=== PATIENT | female | born 1970 | race Caucasian/White ===

== ENCOUNTER 2024-01-19 17:29 | Emergency (ER) | payer OTHER, SELFPAY ==
[2024-01-19 17:37] VITALS: BP 141/66; PULSE 89; RESP 16; TEMP 36.6; O2SAT 97
--- NOTE | 2024-01-19 18:27 | ED_ITS ---
HPI - URI/Sore Throat General Chief Complaint: Ear Stated Complaint: Ear Pain Time Seen by Provider: 01/19/24 18:15 Source: patient and RN notes reviewed Mode of arrival: ambulatory Limitations: no limitations History of Present Illness HPI Narrative: Patient presents today complaining of nasal congestion x3 weeks with bilateral ear pressure x3 days, sinus pressure, headache, cough. Denies shortness of breath. Currently rates her pain 7/10 and has been taking ibuprofen and NyQuil without relief. Related Data Allergies Allergy/AdvReac Type Severity Reaction Status Date / Time No Known Allergies Allergy Unknown Verified 06/22/23 08:28 Review of Systems Review of Systems: CONSTITUTIONAL: Denies body aches, fever, chills, or sweats. EYES: Denies visual changes, redness, or discharge. ENT: Denies rhinorrhea. + nasal congestion, sinus pressure, bilateral ear pressure CARDIOVASCULAR: Denies chest pain, palpitations, or edema. RESPIRATORY: Denies dyspnea.+ cough GASTROINTESTINAL: Denies abdominal pain, nausea, vomiting, or diarrhea. GENITOURINARY: Denies dysuria or hematuria. SKIN: Denies rash, itching, or wounds. MUSCULOSKELETAL: Denies back pain, joint pain, or myalgia. NEUROLOGIC: Denies numbness, tingling, or weakness.+ headache PSYCH: Denies depression or anxiety. [facility] Past Medical History Medical History Anxiety disorder No rx meds Surgical History Surgical History Delivery by section 12/23/2001- primary - placenta previa 09/16/2005-repeat H/O gynecological procedure ECC- 12/27/2007 H/O: hysterectomy hysterectomy/no BSO - DUB History of endometrial ablation History of tubal ligation 09/16/2005 Family History Family History Mother Heart disease Osteoporosis No hx of any fractures Social History Social History Smoking status: Never smoker Alcohol intake: never Substance use: never Substance use type: does not use Do You Feel Safe in your Home?: Yes Lack of Transportation: No Lack of Food: Never True Current Housing: I Have Housing Concerned About Future Housing: No Difficulty Paying Gas/Electric Bills: No Difficulty Paying for Meds: No Currently Unemployed: No Education: Bachelor's Degree Difficulty w/ Childcare or Family Care: No Living arrangements: with family Occupation/Education: occupation Gender identity (if verbalized by the patient): Female Sexual Orientation (if Verbalized by the Patient): Straight or Heterosexual Comments At time of signature, I have reviewed and agree with nursing past medical, surgical, social and family history unless otherwise noted. Please see nursing chart for further information. There is no relevant family history pertinent to the presenting complaint Exam Narrative: GENERAL: Mildly a-appearing, well-nourished, and in no acute distress. HEAD: Normocephalic, atraumatic. EYES: EOMI. No redness or drainage. Conjunctivae normal. ENT: Mucous membranes pink and moist. Nares congested. No rhinorrhea. TMs normal bilaterally. Throat normal. Uvula midline. NECK: Normal AROM. Supple. No lymphadenopathy. CHEST: No respiratory distress. Clear to auscultation. HEART: Regular rate and rhythm. No murmur appreciated. EXTREMITIES: Normal range of motion. No edema. SKIN: Warm, dry, no rash. Capillary refill normal. Normal skin turgor. NEURO: No focal deficits. Alert and oriented x3. Gait steady. PSYCH: Normal affect. No signs of depression or anxiety. Course Course Level of Care: Express Care Visit Vital Signs Vital signs: Vital Signs Temperature 97.8 F 01/19/24 17:37 Pulse Rate 89 01/19/24 17:37 Respiratory Rate 16 01/19/24 17:37 Blood Pressure 141/66 H 01/19/24 17:37 Pulse Oximetry 97 01/19/24 17:37 Temperature 97.8 F 01/19/24 17:37 Pulse Rate 89 01/19/24 17:37 Respiratory Rate 16 01/19/24 17:37 Blood Pressure 141/66 H 01/19/24 17:37 Pulse Oximetry 97 01/19/24 17:37 Reviewed MDM - URI/Sore Throat MDM Narrative Medical decision making narrative: Patient will be treated with amoxicillin and prednisone for sinusitis and bronchitis. Anticipatory guidance given. Differential Diagnosis Differential diagnosis: Likely upper respiratory infection, otitis media, sinusitis and bronchitis Critical Care Time Critical Care Time Critical Care Time: No Discharge Plan Discharge Clinical Impression: Bronchitis Sinusitis Qualifiers: Sinusitis location: unspecified location Chronicity: acute Recurrence: non- recurrent Qualified Code(s): J01.90 - Acute sinusitis, unspecified Patient Disposition: Home, Self-Care Condition: Stable Instructions: Antibiotic Form, Sinusitis (ED), Acute Bronchitis (ED) Additional Instructions: Please take all medications as prescribed. Continue [id number] medication as needed for symptoms. Follow-up with your PCP in 3 days if symptoms are not improving. Your blood pressure was elevated above 120/80 today at Urgent Care. This puts you above the threshold for follow up. Please schedule a followup visit with your personal physician as soon as possible, for further evaluation and treatment. Even blood pressure exceeding 120/80 may indicate pre-hypertension. Prescriptions: New amoxicillin 875 mg tablet 875 mg PO Q12H 7 Days Qty: 14 0RF prednisone 50 mg tablet 50 mg PO DAILY 5 Days Qty: 5 0RF No Action estradiol 0.5 mg tablet 0.25 mg PO DAILY 90 Days Qty: 45 3RF estradiol 1 mg tablet 1 mg PO DAILY 90 Days Qty: 90 3RF Rx Instructions: to take in combination with estradiol 0.5mg 1/2 tab to equal estradiol 1.25 mg daily Follow-up/Referrals: PHYSICIAN,ROD CUP FILLER [Primary Care Provider] - Time of Disposition: 18:26
== END 2024-01-19 18:27 | disposition home or self-care (01) ==
PROVIDERS: Emergency Provider Nurse Practitioner
DX: J40 Bronchitis, not specified as acute or chronic (principal)
CPT/HCPCS: 99213; G0463